=== PATIENT | male | born 1950 | race Two or more races ===

== ENCOUNTER 2023-03-23 13:36 | Emergency (ER) | payer MEDICARE, BC ==
[~2023-03-23] VITALS: Ht 177.8 cm; Wt 91.2 kg
--- NOTE | 2023-03-23 16:36 | NUR ---
MD WITH ORDER TO D/C HOME. PT LEFT IN STABLE CONDITION.
[2023-03-23 16:37] VITALS: BP 119/73
== END 2023-03-23 16:39 | disposition home or self-care (01) ==
LOC: ER 14:13
DX: R07.9 Chest pain, unspecified (principal); I10 Essential (primary) hypertension; I48.91 Unspecified atrial fibrillation; Z60.2 Problems related to living alone
CPT/HCPCS: 71045-TC